=== PATIENT | male | born 1965 | race Caucasian/White ===

== ENCOUNTER 2018-05-20 23:03 | Emergency (ER) | payer BC ==
[2018-05-20] MEDS ORDERED: ASPIRIN 81 MG CHEWABLE TABLET ONE (23:45)
[2018-05-20] MEDS ORDERED: NA CHLORIDE 0.9% 500 ML ONE (23:45)
[2018-05-21 00:11] LABS: Absolute Lymphocytes (CBC) 3.4 K/uL (0.7-4.9); Absolute Monocytes 0.7 K/uL (0.1-1.3); Absolute Neutrophil 5.9 K/uL (1.8-8.0); Basophils % 0.6 % (0-1.3); Eosinophils % 4.6 % (0-4.4); Hematocrit 45.2 % (39.6-49.0); Lymphocytes % 31.9 % (15.3-44.8); MPV 10.4 fL (7.6-11.3); RBC Red Blood Cell Count 4.81 M/uL (4.33-5.43)
[2018-05-21 00:33] LABS: ALT/SGPT 60 U/L (12-78); AST/SGOT 26 U/L (15-37); Albumin 3.7 g/dL (3.4-5.0); Alkaline Phosphatase 339 U/L (45-117); BUN Blood Urea Nitrogen 8 mg/dL (7-18); Bicarbonate 30 mmol/L (21-32); Bilirubin Direct 0.1 mg/dL (0-0.2); Bilirubin Total 0.3 mg/dL (0.2-1.0); Glucose Level 105 mg/dL (74-106); Magnesium 2.1 mg/dL (1.8-2.4); NT PRO-BNP 80 pg/mL (<125); Potassium 4.1 mmol/L (3.5-5.1); Protein, Total 6.5 g/dL (6.4-8.2); Sodium Level 142 mmol/L (136-145); T3 Free 2.73 pg/mL (2.18-3.98); Troponin (Emerg Dept Use Only) < 0.02 ng/mL (0.0-0.045)
[2018-05-21 00:34] LABS: Protime INR 1.04
--- NOTE | 2018-05-21 03:36 | EDPHYS ---
Physician Documentation [facility] Name: Arpan Tomas Age: 52 yrs Sex: Male : 1965 Arrival Date: 05/20/2018 Time: 23:04 Bed 2 Private MD: ED Physician Ruddy Beth HPI: 05/20 23:10 This 52 yrs old Male presents to ER via Ambulatory with complaints of L Arm cp Pain, Irregular Pulse. 23:10 The patient presents with a history of heart racing. cp 23:10 Context: The symptoms occur at rest. Onset: The symptoms/episode began/occurred today. cp Duration: The patient or guardian reports multiple episodes, with no pattern. Associated signs and symptoms: Pertinent positives: left arm pain, Pertinent negatives: chest pain, cough, fever, lightheadedness, SOB, syncope. Severity of symptoms: in the emergency department the symptoms are unchanged despite home interventions. Historical: - Allergies: 23:21 No Known Allergies; bb - Home Meds: 23:21 lisinopril 2.5 mg Oral tab 1 tab once daily [Active]; Suboxone sublingual sublingual bb twice a day [Active]; aspirin 81 mg Oral chew 1 tab once daily [Active]; - PMHx: 23:21 Hypertension; bb - PSHx: 23:21 Cholecystectomy; bb - Immunization history:: Adult Immunizations up to date. - Social history:: Smoking status: Patient uses tobacco products, smokes two packs cigarettes per day. Patient uses alcohol, on a daily basis. Patient/guardian denies using street drugs. - Ebola Screening: : No symptoms or risks identified at this time. ROS: 23:15 Constitutional: Negative for body aches, chills, fever, poor PO intake. cp 23:15 Eyes: Negative for injury, pain, redness, and discharge. cp 23:15 Cardiovascular: Positive for palpitations, Negative for chest pain, edema. cp 23:15 ENT: Negative for drainage from ear(s), ear pain, sore throat, difficulty swallowing, cp difficulty handling secretions. 23:15 Neck: Negative for pain with movement, pain at rest, stiffness. 23:15 Respiratory: Negative for cough, dyspnea on exertion, shortness of breath, wheezing. 23:15 Abdomen/GI: Negative for abdominal pain, nausea, vomiting, and diarrhea, black/tarry stool, rectal bleeding. 23:15 MS/extremity: Positive for pain, of the left arm, Negative for injury or acute deformity, decreased range of motion, paresthesias. 23:15 Skin: Negative for cellulitis, rash. 23:15 Neuro: Negative for altered mental status, dizziness, headache, syncope, weakness. 23:15 All other systems are negative. Exam: 23:20 ECG was reviewed by the Attending Physician. cp 23:20 Constitutional: The patient appears in no acute distress, alert, awake, cp non-diaphoretic, non-toxic, well developed, well nourished. 23:20 Head/Face: Normocephalic, atraumatic. cp 23:20 Eyes: Periorbital structures: appear normal, Conjunctiva: normal, no exudate, no injection, Sclera: no appreciated abnormality, Lids and lashes: appear normal, bilaterally. 23:20 ENT: External ear(s): are unremarkable, Nose: is normal, Mouth: is normal, Posterior pharynx: is normal, airway is patent. 23:20 Neck: ROM/movement: is normal, is supple, without pain, no range of motions limitations, no nuchal rigidity. 23:20 Chest/axilla: Inspection: normal, Palpation: is normal, no crepitus, no tenderness. 23:20 Cardiovascular: Rate: normal, Rhythm: regular, Heart sounds: murmur, not appreciated, Edema: is not appreciated, JVD: is not appreciated. 23:20 Respiratory: the patient does not display signs of respiratory distress, Respirations: normal, no use of accessory muscles, no retractions, no splinting, no tachypnea, labored breathing, is not present, Breath sounds: are clear throughout, no decreased breath sounds, no stridor, no wheezing. 23:20 Abdomen/GI: Inspection: abdomen appears normal, Palpation: abdomen is soft and non-tender, in all quadrants. 23:20 Back: pain, is absent, ROM is normal. cp 23:20 Skin: cellulitis, is not appreciated, no rash present. cp 23:20 Neuro: Orientation: to person, place \T\ time. Mentation: is normal, Cerebellar function: is grossly normal, Motor: moves all fours, strength is normal, Sensation: is normal. 05/21 02:53 ECG was reviewed by the Attending Physician. cp Vital Signs: 05/20 23:21 BP 138 / 89; Pulse 81; Resp 16 S; Temp 98.4(O); Pulse Ox 99% on R/A; Weight 81.65 kg bb (R); Height 6 ft. 0 in. (182.88 cm) (R); Pain 1/10; 05/21 00:45 BP 113 / 53; Pulse 57; Resp 18; Pulse Ox 98% on R/A; ea 01:40 BP 111 / 68; Pulse 69; Resp 18; Pulse Ox 97% on R/A; ea 02:00 BP 104 / 63; Pulse 54; Resp 13; Pulse Ox 97% on R/A; lp1 03:00 BP 112 / 64; Pulse 50; Resp 12; Pulse Ox 95% on R/A; lp1 03:48 BP 104 / 62; Pulse 53; Resp 14; Pulse Ox 96% on R/A; Pain 0/10; lp1 05/20 23:21 Body Mass Index 24.41 (81.65 kg, 182.88 cm) MDM: 05/20 23:09 Patient medically screened. cp 05/21 03:35 Data reviewed: vital signs, nurses notes, lab test result(s), EKG, radiologic studies, cp plain films. 03:35 ANNA MARIE Risk Score: 1 - Known CAD, Total Score = 1. Differential diagnosis: arrythmia, cp dehydration, stress disorder, acute TX, electrolyte abnormality, hyperthyroidism. Test interpretation: by ED physician or midlevel provider: ECG, plain radiologic studies. Counseling: I had a detailed discussion with the patient and/or guardian regarding: the historical points, exam findings, and any diagnostic results supporting the discharge/admit diagnosis, lab results, radiology results, the need for outpatient follow up, a family practitioner, to return to the emergency department if symptoms worsen or persist or if there are any questions or concerns that arise at home. Response to treatment: the patient's symptoms have markedly improved after treatment, and as a result, I will discharge patient. Special discussion: Based on the patient's history, exam, and Dx evaluation, there is no indication for emergent intervention or inpatient Tx. It is understood by the patient/guardian that if the Sx's persist or worsen they need to return immediately for re-evaluation. 05/20 23:15 Order name: Basic Metabolic Panel; Complete Time: 00:36 cp 05/21 00:37 Interpretation: Normal except: CL 109. cp 05/20 23:15 Order name: CBC with Diff; Complete Time: 00:36 cp 05/21 00:47 Interpretation: Normal except: EOSINOPHIL % 4.6. cp 05/20 23:15 Order name: LFT's; Complete Time: 00:36 cp 05/20 23:15 Order name: Magnesium; Complete Time: 00:36 cp 05/20 23:15 Order name: NT PRO-BNP; Complete Time: 00:36 cp 05/20 23:15 Order name: PT-INR; Complete Time: 00:36 cp 05/20 23:15 Order name: Troponin (emerg Dept Use Only); Complete Time: 00:36 cp 05/21 00:37 Interpretation: TROPED < 0.02; Reviewed. cp 05/20 23:15 Order name: XRAY Chest (1 view) cp 05/20 23:15 Order name: EKG; Complete Time: 23:16 cp 05/20 23:15 Order name: TSH; Complete Time: 00:36 cp 05/20 23:15 Order name: T3 Free; Complete Time: 00:36 cp 05/21 02:08 Order name: Troponin I; Complete Time: 03:34 cp 05/21 03:34 Interpretation: Reviewed. cp 05/20 23:15 Order name: Cardiac monitoring; Complete Time: 23:58 cp 05/20 23:15 Order name: EKG - Nurse/Tech; Complete Time: 23:58 cp 05/20 23:15 Order name: IV Saline Lock; Complete Time: 23:58 cp 05/20 23:15 Order name: Labs collected and sent; Complete Time: 23:58 cp 05/20 23:15 Order name: O2 Per Protocol; Complete Time: 23:58 cp 05/20 23:15 Order name: O2 Sat Monitoring; Complete Time: 23:58 cp 05/21 02:08 Order name: EKG - Nurse/Tech; Complete Time: 02:50 cp EC/20 23:20 Rate is 65 beats/min. Rhythm is regular. GA interval is normal. QRS interval is normal. cp QT interval is normal. Interpreted by me. Reviewed by me. 05/21 02:53 Rate is 48 beats/min. Rhythm is regular. GA interval is normal. QRS interval is normal. cp QT interval is normal. Interpreted by me. Reviewed by me. Administered Medications: 05/20 23:57 Drug: NS 0.9% 500 ml Route: IV; Rate: bolus; Site: right antecubital; ea 05/21 00:45 Follow up: Response: No adverse reaction; IV Status: Completed infusion; IV Intake: ea 500ml 05/20 23:58 Drug: Aspirin Chewable Tablet 324 mg Route: PO; ea 05/21 00:15 Follow up: Response: No adverse reaction ea Disposition: 04:45 Co-signature as Attending Physician, Ruddy Beth MD. rn Disposition: 05/21/18 03:35 Discharged to Home. Impression: Palpitations, Pain in left arm. - Condition is Stable. - Discharge Instructions: Palpitations, Aspirin and Your Heart. - Medication Reconciliation Form, Thank You Letter, Antibiotic Education, Prescription Opioid Use form. - Follow up: Private Physician; When: 1 - 2 days; Reason: Recheck today's complaints. - Problem is new. - Symptoms have improved. Signatures: Dispatcher [employer] EDAmalia Tariq, RN RN bb Ruddy Beth MD MD rn Pena, Laura, RN RN lp1 Jason Harley PA PA cp Liza Álvarez RN RN ea Corrections: (The following items were deleted from the chart) 03:51 03:35 05/21/2018 03:35 Discharged to Home. Impression: Palpitations; Pain in left arm. lp1 Condition is Stable. Forms are Medication Reconciliation Form, Thank You Letter, Antibiotic Education, Prescription Opioid Use. Follow up: Private Physician; When: 1 - 2 days; Reason: Recheck today's complaints. Problem is new. Symptoms have improved. cp
--- NOTE | 2018-05-21 03:36 | ER ---
Nurse's Notes [facility] Name: Arpan Tomas Age: 52 yrs Sex: Male : 1965 Arrival Date: 05/20/2018 Time: 23:04 Bed 2 Private MD: Diagnosis: Palpitations;Pain in left arm Presentation: 05/20 23:18 Presenting complaint: Patient states: he has felt like his heart is beating out of his bb chest all day and he has some left forearm pain he also has been having intermittent stabbing chest pain. Transition of care: patient was not received from another setting of care. Onset of symptoms was May 20, 2018. Risk Assessment: Do you want to hurt yourself or someone else? Patient reports no desire to harm self or others. Initial Sepsis Screen: Does the patient meet any 2 criteria? No. Patient's initial sepsis screen is negative. Does the patient have a suspected source of infection? No. Patient's initial sepsis screen is negative. Care prior to arrival: None. 23:18 Method Of Arrival: Ambulatory bb 23:18 Acuity: [place] 3 bb Historical: - Allergies: 23:21 No Known Allergies; bb - Home Meds: 23:21 lisinopril 2.5 mg Oral tab 1 tab once daily [Active]; Suboxone sublingual sublingual bb twice a day [Active]; aspirin 81 mg Oral chew 1 tab once daily [Active]; - PMHx: 23:21 Hypertension; bb - PSHx: 23:21 Cholecystectomy; bb - Immunization history:: Adult Immunizations up to date. - Social history:: Smoking status: Patient uses tobacco products, smokes two packs cigarettes per day. Patient uses alcohol, on a daily basis. Patient/guardian denies using street drugs. - Ebola Screening: : No symptoms or risks identified at this time. Screenin:57 Abuse screen: Denies threats or abuse. Nutritional screening: No deficits noted. ea Tuberculosis screening: No symptoms or risk factors identified. Fall Risk IV access (20 points). Assessment: 23:55 General: Appears uncomfortable, Behavior is calm, cooperative, appropriate for age. ea Pain: Complains of pain in chest Pain radiates to left arm Pain began today. Neuro: Level of Consciousness is awake, alert, obeys commands, Oriented to person, place, time. Cardiovascular: Patient's skin is warm and dry. Respiratory: Airway is patent Respiratory effort is even, unlabored, Respiratory pattern is regular, symmetrical. Derm: Skin is pink, warm \T\ dry. 05/21 00:50 Reassessment: Patient and/or family updated on plan of care and expected duration. Pain ea level reassessed. Patient is alert, oriented x 3, equal unlabored respirations, skin warm/dry/pink. 01:38 Reassessment: Patient and/or family updated on plan of care and expected duration. Pain ea level reassessed. Patient is alert, oriented x 3, equal unlabored respirations, skin warm/dry/pink. 02:30 Reassessment: Patient and/or family updated on plan of care and expected duration. Pain ea level reassessed. Patient is alert, oriented x 3, equal unlabored respirations, skin warm/dry/pink. 03:49 Reassessment: Patient appears in no apparent distress at this time. Patient is alert, lp1 oriented x 3, equal unlabored respirations, skin warm/dry/pink. Patient denies pain at this time. Patient states feeling better. Patient states symptoms have improved. Vital Signs: 05/20 23:21 BP 138 / 89; Pulse 81; Resp 16 S; Temp 98.4(O); Pulse Ox 99% on R/A; Weight 81.65 kg bb (R); Height 6 ft. 0 in. (182.88 cm) (R); Pain 1/10; 05/21 00:45 BP 113 / 53; Pulse 57; Resp 18; Pulse Ox 98% on R/A; ea 01:40 BP 111 / 68; Pulse 69; Resp 18; Pulse Ox 97% on R/A; ea 02:00 BP 104 / 63; Pulse 54; Resp 13; Pulse Ox 97% on R/A; lp1 03:00 BP 112 / 64; Pulse 50; Resp 12; Pulse Ox 95% on R/A; lp1 03:48 BP 104 / 62; Pulse 53; Resp 14; Pulse Ox 96% on R/A; Pain 0/10; lp1 05/20 23:21 Body Mass Index 24.41 (81.65 kg, 182.88 cm) ED Course: 05/20 23:04 Patient arrived in ED. am2 23:09 Jason Harley PA is PHCP. cp 23:09 Ruddy Beth MD is Attending Physician. cp 23:20 Triage completed. bb 23:21 Arm band placed on Patient placed in an exam room, on a stretcher, on cardiac tech, bb on pulse oximetry. EKG completed in triage. Results shown to MD. 23:25 Liza Álvarez, LOUISA is Primary Nurse. ea 23:34 X-ray completed. Portable x-ray completed in exam room. Patient tolerated procedure kw well. 23:41 XRAY Chest (1 view) In Process Unspecified. EDMS 23:57 Inserted saline lock: 20 gauge in right antecubital area, using aseptic technique. ea Blood collected. 23:58 Patient has correct armband on for positive identification. Placed in gown. Bed in low ea position. Call light in reach. hog driver on. Pulse ox on. NIBP on. 23:58 Patient maintains SpO2 saturation greater than 95% on room air. ea 05/21 02:51 EKG done, by ED staff, reviewed by Jason HUANG. lp1 03:49 No provider procedures requiring assistance completed. IV discontinued, No lp1 redness/swelling at site. Pressure dressing applied. Administered Medications: 05/20 23:57 Drug: NS 0.9% 500 ml Route: IV; Rate: bolus; Site: right antecubital; ea 03 00:45 Follow up: Response: No adverse reaction; IV Status: Completed infusion; IV Intake: ea 500ml 05/20 23:58 Drug: Aspirin Chewable Tablet 324 mg Route: PO; ea 05/21 00:15 Follow up: Response: No adverse reaction ea Intake: 00:45 IV: 500ml; Total: 500ml. ea Outcome: 03:35 Discharge ordered by MD. cp 03:51 Discharged to home ambulatory, with family. lp1 03:51 Condition: good 03:51 Discharge instructions given to patient, Instructed on discharge instructions, follow up and referral plans. Demonstrated understanding of instructions, follow-up care. 03:51 Patient left the ED. lp1 Signatures: Dispatcher [employer] EDMS Amalia Rangel RN RN bb Whitley, Kimberlee kw Pena, Laura, RN RN lp1 Jason Harley PA PA cp Emma Green am2 Liza Álvarez RN RN ea
--- NOTE | 2018-05-21 05:58 | EKG ---
Test Date: 2018-05-20 Test Time: 23:14:42 Ice Seller: [id number] MEASUREMENT RESULTS: Intervals: Rate: 65 MN: 134 QRSD: 90 QT: 378 QTc: 393 [place]: P: -18 MN: 134 QRS: 55 T: 42 INTERPRETIVE STATEMENTS: Normal sinus rhythm Normal ECG No previous ECG available for comparison Electronically Signed On 05-21-18 05:57:03 CDT by Franklin Almeida
--- NOTE | 2018-05-21 08:08 | RAD REPORT ---
EXAM DESCRIPTION: RAD - Chest Single View - 05/20/2018 11:41 pm CLINICAL HISTORY: PALPITATIONS Chest pain. COMPARISON: CHEST PA AND LAT 2 VIEW dated 04/22/2013 FINDINGS: Portable technique limits examination quality. The lungs are grossly clear. The heart is normal in size. No displaced fractures. IMPRESSION: No acute intrathoracic process suspected.
== END 2018-05-21 03:51 | disposition home or self-care (01) ==
LOC: ER 23:03
DX: M79.602 Pain in left arm (principal); R00.2 Palpitations; I10 Essential (primary) hypertension; Z79.82 Long term (current) use of aspirin; F17.210 Nicotine dependence, cigarettes, uncomplicated
CPT/HCPCS: 36415; 71045; 80048; 80076; 83735; 83880; 84443; 84481; 84484; 85025; 85610; 93005; 96360; 99285

== ENCOUNTER 2020-05-12 14:30 | Emergency (ER) | payer BC ==
--- NOTE | 2020-05-12 15:37 | ER ---
Nurse's Notes [facility] Name: Arpan Tomas Age: 54 yrs Sex: Male : 1965 Arrival Date: 05/12/2020 Time: 15:07 Bed Waiting Private MD: Diagnosis: ED Course: 05/12 15:07 Patient arrived in ED. ds1 15:37 Edy Prater MD is Attending Physician. aa5 Administered Medications: No medications were administered Outcome: 15:37 Patient left the ED. aa5 Signatures: Kyleigh Hernandez ds1 Kassandra Pedroza RN RN aa5 Corrections: (The following items were deleted from the chart) 15:36 15:36 Arm band placed on aa5 aa5
== END 2020-05-12 15:37 | disposition left against medical advice (07) ==
LOC: ER 14:30
DX: R69 Illness, unspecified (principal); Z53.21 Procedure and treatment not carried out due to patient leaving prior to being seen by health care provider

== ENCOUNTER 2020-05-14 21:14 | Emergency (ER) | payer BC ==
--- NOTE | 2020-05-14 22:32 | EDPHYS ---
Physician Documentation [facility] Name: Arpan Tomas Age: 54 yrs Sex: Male : 1965 Arrival Date: 05/14/2020 Time: 21:14 Bed 8 Private MD: ED Physician Edy Prater HPI: 05/14 23:41 This 54 yrs old Male presents to ER via Ambulatory with complaints of High kb Blood Pressure. 23:41 The patient has elevated blood pressure and discovered this at home, with a home kb device. Onset: The symptoms/episode began/occurred 3 day(s) ago. Associated signs and symptoms: The patient has no apparent associated signs or symptoms. Severity of symptoms: At its worst the blood pressure was 160 mm Hg. The patient has experienced similar episodes in the past, chronically. The patient has not recently seen a physician. Pt reports his BP has been elevated for 3 days. Reports BP at home of 160/100 at the highest. Denies any associated symptoms including headache, dizziness, chest pain. . Historical: - Allergies: 21:21 No Known Allergies; ll1 - PMHx: 21:21 Hypertension; ll1 - PSHx: 21:21 Cholecystectomy; ll1 - Immunization history:: Flu vaccine is not up to date. - Social history:: Smoking status: Patient reports the use of cigarette tobacco products, smokes one pack cigarettes per day. ROS: 23:42 Constitutional: Negative for fever, chills, and weight loss, Cardiovascular: Negative kb for chest pain, palpitations, and edema, Respiratory: Negative for shortness of breath, cough, wheezing, and pleuritic chest pain, Abdomen/GI: Negative for abdominal pain, nausea, vomiting, diarrhea, and constipation, MS/Extremity: Negative for injury and deformity, Skin: Negative for injury, rash, and discoloration, Neuro: Negative for headache, weakness, numbness, tingling, and seizure. Exam: 23:42 Constitutional: This is a well developed, well nourished patient who is awake, alert, kb and in no acute distress. Head/Face: Normocephalic, atraumatic. Cardiovascular: Regular rate and rhythm with a normal S1 and S2. No gallops, murmurs, or rubs. No pulse deficits. Respiratory: Respirations even and unlabored. No increased work of breathing, no retractions or nasal flaring. Abdomen/GI: Soft, non-tender. No distention Skin: Warm, dry with normal turgor. Normal color with no rashes, no lesions, and no evidence of cellulitis. MS/ Extremity: Pulses equal, no cyanosis. Neurovascular intact. Full, normal range of motion. Neuro: Awake and alert, GCS 15, oriented to person, place, time, and situation. Moves all extremities. Normal gait. 23:43 ECG was reviewed by the Attending Physician. kb Vital Signs: 21:21 BP 149 / 70; Pulse 63; Resp 17; Temp 98.2; Pulse Ox 98% ; Weight 79.38 kg; Height 6 ft. ll1 0 in. (182.88 cm); Pain 0/10; 21:21 Body Mass Index 23.73 (79.38 kg, 182.88 cm) ll1 MDM: 22:00 Patient medically screened. kb 23:41 Data reviewed: vital signs, nurses notes. Data interpreted: Pulse oximetry: on room air kb is 98 %. Interpretation: normal. Counseling: I had a detailed discussion with the patient and/or guardian regarding: the historical points, exam findings, and any diagnostic results supporting the discharge/admit diagnosis, the need for outpatient follow up, a family practitioner, to return to the emergency department if symptoms worsen or persist or if there are any questions or concerns that arise at home. 05/14 22:12 Order name: EKG; Complete Time: 22:13 kb 05/14 22:12 Order name: EKG - Nurse/Tech; Complete Time: 22:31 kb EC:43 Rate is 59 beats/min. Rhythm is regular. QRS [place] is Normal. ID interval is normal at kb 170 msec. QRS interval is normal at 82 msec. QT interval is normal at 404 msec. Administered Medications: No medications were administered Disposition: 05/15 05:35 Co-signature as Attending Physician, Edy Prater MD I agree with the assessment and 4 plan of care. Disposition: 05/14/20 22:31 Discharged to Home. Impression: Essential (primary) hypertension. - Condition is Stable. - Discharge Instructions: Hypertension, [id number], Managing Your Hypertension. - Medication Reconciliation Form, Thank You Letter, Antibiotic Education, Prescription Opioid Use form. - Follow up: Emergency Department; When: As needed; Reason: Worsening of condition. Follow up: Private Physician; When: 2 - 3 days; Reason: Recheck today's complaints, Continuance of care, Re-evaluation by your physician. Signatures: Janeen Nicolas, TRE-C TRE-Edy Cleaning MD MD tw4 Gino, Daniel mw2 Esperanza Guerrero RN RN ll1 Corrections: (The following items were deleted from the chart) 05/14 22:42 22:31 05/14/2020 22:31 Discharged to Home. Impression: Essential (primary) mw2 hypertension. Condition is Stable. Forms are Medication Reconciliation Form, Thank You Letter, Antibiotic Education, Prescription Opioid Use. Follow up: Emergency Department; When: As needed; Reason: Worsening of condition. Follow up: Private Physician; When: 2 - 3 days; Reason: Recheck today's complaints, Continuance of care, Re-evaluation by your physician. kb
--- NOTE | 2020-05-14 22:32 | ER ---
Nurse's Notes [facility] Name: Arpan Tomas Age: 54 yrs Sex: Male : 1965 Arrival Date: 05/14/2020 Time: 21:14 Bed 8 Private MD: Diagnosis: Essential (primary) hypertension Presentation: 05/14 21:21 Chief complaint: Patient states: BP high for 3 days. Took 1 extra dose of metoprolol ll1 tonight to help his BP. BP at home 160/100. L wrist pain int. No CP, no ANDRE. Coronavirus screen: Client denies travel out of the [place] in the last 14 days. At this time, the client does not indicate any symptoms associated with coronavirus-19. Ebola Screen: Patient denies travel to an Ebola-affected area in the 21 days before illness onset. Initial Sepsis Screen: Does the patient meet any 2 criteria? No. Patient's initial sepsis screen is negative. Does the patient have a suspected source of infection? No. Patient's initial sepsis screen is negative. Risk Assessment: Do you want to hurt yourself or someone else? Patient reports no desire to harm self or others. Onset of symptoms was May 11, 2020. 21:21 Method Of Arrival: Ambulatory ll1 21:21 Acuity: [place] 3 ll1 Triage Assessment: 22:54 General: Appears in no apparent distress. Behavior is calm, cooperative. rv Historical: - Allergies: 21:21 No Known Allergies; ll1 - PMHx: 21:21 Hypertension; ll1 - PSHx: 21:21 Cholecystectomy; ll1 - Immunization history:: Flu vaccine is not up to date. - Social history:: Smoking status: Patient reports the use of cigarette tobacco products, smokes one pack cigarettes per day. Screenin:54 Abuse screen: Denies threats or abuse. Denies injuries from another. Nutritional rv screening: No deficits noted. Tuberculosis screening: No symptoms or risk factors identified. Fall Risk None identified. Assessment: 22:54 General: Appears comfortable, Behavior is calm, cooperative. Pain: Denies pain. Neuro: rv Level of Consciousness is awake, alert, obeys commands, Oriented to person, place, time, situation. Cardiovascular: Patient's skin is warm and dry. Respiratory: Airway is patent Respiratory effort is even, unlabored. Derm: Skin is intact. Vital Signs: 21:21 BP 149 / 70; Pulse 63; Resp 17; Temp 98.2; Pulse Ox 98% ; Weight 79.38 kg; Height 6 ft. ll1 0 in. (182.88 cm); Pain 0/10; 21:21 Body Mass Index 23.73 (79.38 kg, 182.88 cm) ll1 ED Course: 21:14 Patient arrived in ED. cl3 21:23 Triage completed. ll1 21:23 Arm band placed on. ll1 21:57 Quincy Amador, RN is Primary Nurse. jb4 22:00 Janeen Nicolas [facility]-C [facility]. kb 22:00 Edy Prater MD is Attending Physician. kb 22:54 Patient has correct armband on for positive identification. Pulse ox on. NIBP on. rv 22:54 No provider procedures requiring assistance completed. Patient did not have IV access rv during this emergency room visit. Administered Medications: No medications were administered Outcome: 22:31 Discharge ordered by MD. kb 22:42 Patient left the ED. mw2 22:55 Discharged to home ambulatory. rv 22:55 Condition: good 22:55 Discharge instructions given to patient, Instructed on discharge instructions, follow up and referral plans. Demonstrated understanding of instructions, follow-up care. Signatures: Janeen Nicolas FNP-C FNP-Quincy Jiménez, RN RN jb4 Daniel Christian mw2 Shaun Gupta RN RN rv Calderon Guerrero cl3 Esperanza Guerrero RN RN ll1
[2020-05-15 17:31] VITALS: BP 149/70; TEMP 98.2; O2SAT 98
== END 2020-05-14 22:42 | disposition home or self-care (01) ==
LOC: ER 21:14
DX: I10 Essential (primary) hypertension (principal); F17.210 Nicotine dependence, cigarettes, uncomplicated
CPT/HCPCS: 93005; 99283